=== PATIENT | female | born 1945 | race Caucasian/White ===

== ENCOUNTER → 2016-12-23 | Outpatient (CLI) | payer MEDICARE ==
[2015-07-24 12:25] VITALS: BP 132/68
[~2016-12-23] MED LIST: ASCO10002 PO; ASPI-630 PO; CALC-112 PO; CHOL10003 PO; FISH1CAP PO; LISI1TAB5 PO; MELO7.5T29 PO; MULT-658 PO; PSYL660P18 PO; SIMV40TA3 PO
--- NOTE | 2016-12-23 10:21 | RAD ---
DATE: 12/23/2016 EXAM: DIGITAL SCREEN BILAT W/CAD HISTORY: Screening COMPARISON: One year earlier This study was interpreted with the benefit of Computerized Aided Detection (CAD). FINDINGS: Breast Density: SCATTERED The breast parenchyma shows scattered fibroglandular densities. Breast parenchyma level B. There has been little change in the appearance of the breasts compared to the previous exam. A biopsy clip is noted in the right breast. IMPRESSION: Benign findings BI-RADS CATEGORY: 2 BENIGN FINDING(S) RECOMMENDED FOLLOW-UP: 12M 12 MONTH FOLLOW-UP PQRS compliance statement: Patient information was entered into a reminder system with a target due date 12/23/2017 for the next mammogram. Mammography is a sensitive method for finding small breast cancers, but it does not detect them all and is not a substitute for careful clinical examination. A negative mammogram does not negate a clinically suspicious finding and should not result in delay in biopsying a clinically suspicious abnormality. "Our facility is accredited by the [employer] Mammography [employer]."
== END | disposition home or self-care (01) ==
LOC: MAMMO 08:45
DX: Z12.31 Encounter for screening mammogram for malignant neoplasm of breast (principal)
CPT/HCPCS: G0202; 77067

== ENCOUNTER → 2017-12-25 | Outpatient (CLI) | payer MEDICARE ==
[2015-07-24 12:25] VITALS: BP 132/68
--- NOTE | 2017-12-25 11:01 | RAD ---
DATE: 12/25/2017 EXAM: MAMMO MIGNON SCREENING BILATERAL HISTORY: Routine screening COMPARISON: 12/23/2016 This study was interpreted with the benefit of Computerized Aided Detection (CAD). Breast Density: FATTY The breast parenchyma is primarily fatty replaced. Breast parenchyma level density A. FINDINGS: 2-D and 3-D tomosynthesis imaging was performed in CC and MLO projections. An old breast biopsy marker is noted laterally in the right breast. No new or enlarging breast densities are seen. Minimal benign calcifications present. No suspicious microcalcifications have developed. IMPRESSION: Stable mammograms without evidence of malignancy. BI-RADS CATEGORY: 2 BENIGN FINDING(S) RECOMMENDED FOLLOW-UP: 12M 12 MONTH FOLLOW-UP PQRS compliance statement: Patient information was entered into a reminder system with a target due date for the next mammogram. Mammography is a sensitive method for finding small breast cancers, but it does not detect them all and is not a substitute for careful clinical examination. A negative mammogram does not negate a clinically suspicious finding and should not result in delay in biopsying a clinically suspicious abnormality. "Our facility is accredited by the [employer]amm[employer]."
== END | disposition home or self-care (01) ==
LOC: MAMMO 09:45
PROVIDERS: ATTEND Internal Medicine Geriatric Medicine
DX: Z12.31 Encounter for screening mammogram for malignant neoplasm of breast (principal); E78.2 Mixed hyperlipidemia; M17.0 Bilateral primary osteoarthritis of knee; I10 Essential (primary) hypertension; Z82.49 Family history of ischemic heart disease and other diseases of the circulatory system; Z83.3 Family history of diabetes mellitus
CPT/HCPCS: 77063; 77067

== ENCOUNTER → 2018-02-07 | Outpatient (CLI) | payer MEDICARE ==
[2015-07-24 12:25] VITALS: BP 132/68
--- NOTE | 2018-02-08 09:28 | RAD ---
Thyroid ultrasound, 02/07/2018: HISTORY: Follow-up thyroid nodules Comparison is made to a study from 01/30/2017. The right lobe of the gland measures 4.7 x 2.3 x 1.9 cm while the left lobe of the gland measures 6.9 x 2.9 x 2.8 cm. There are multiple bilateral thyroid nodules. The largest of these lies in the mid to inferior aspect of the left lobe of the gland. It demonstrates solid and cystic components. Its margins are smooth. It measures 5.0 x 2.6 x 4.7 cm. The largest nodule on the right lies in the mid to upper pole. It is predominately solid and smoothly marginated measuring 2.5 x 1.2 x 1.7 cm. Allowing for technical differences these nodules have shown no definite change in size. Additional smaller nodules include an 8 mm hypoechoic nodule at the junction of the isthmus and right lobe, and a 1 cm hypoechoic nodule in the posterior aspect of the right lobe of the gland, both of which appear stable. No thyroid calcifications or highly suspicious features are seen. IMPRESSION: Stable multinodular thyroid gland. Electronically signed by: Dylan Solis MD (02/08/2018 9:25 AM) [facility]
== END | disposition home or self-care (01) ==
LOC: US 13:47
PROVIDERS: ATTEND Otolaryngology
DX: E04.2 Nontoxic multinodular goiter (principal); E78.00 Pure hypercholesterolemia, unspecified; I10 Essential (primary) hypertension; Z96.651 Presence of right artificial knee joint
CPT/HCPCS: 76536

== ENCOUNTER → 2018-12-27 | Outpatient (CLI) | payer MEDICARE ==
[2015-07-24 12:25] VITALS: BP 132/68
[~2018-12-27] MED LIST changes: +LISI1TAB19 PO; -LISI1TAB5 PO; +SIMV40TA18 PO; -SIMV40TA3 PO
--- NOTE | 2018-12-28 17:03 | RAD ---
DATE: 12/27/2018 EXAM: DIGITAL SCREEN BILAT W/CAD HISTORY: Routine screening COMPARISON: 12/23/2015, 09/23/2014, 12/23/2016, 12/25/2017 mammographic exams This study was interpreted with the benefit of Computerized Aided Detection (CAD). Breast Density: FATTY The breast parenchyma is primarily fatty replaced. Breast parenchyma level density A. FINDINGS: Biopsy clip marker involves the right outer upper breast. No new mass or distortion. No suspicious calcification. IMPRESSION: Stable BI-RADS CATEGORY: 1 NEGATIVE RECOMMENDED FOLLOW-UP: 12M 12 MONTH FOLLOW-UP PQRS compliance statement: Patient information was entered into a reminder system with a target due date for the next mammogram. Mammography is a sensitive method for finding small breast cancers, but it does not detect them all and is not a substitute for careful clinical examination. A negative mammogram does not negate a clinically suspicious finding and should not result in delay in biopsying a clinically suspicious abnormality. "Our facility is accredited by the [employer] Mammography [employer]."
== END | disposition home or self-care (01) ==
LOC: MAMMO 13:23
PROVIDERS: ATTEND Internal Medicine Geriatric Medicine
DX: Z12.31 Encounter for screening mammogram for malignant neoplasm of breast (principal); N64.89 Other specified disorders of breast
CPT/HCPCS: 77067

== ENCOUNTER → 2019-02-19 | Outpatient (CLI) | payer MEDICARE ==
[2015-07-24 12:25] VITALS: BP 132/68
--- NOTE | 2019-02-19 17:06 | RAD ---
EXAM: Thyroid ultrasound HISTORY: Follow-up thyroid nodules. Prior benign biopsies. COMPARISON: 02/07/2018. FINDINGS: Sonographic evaluation of the thyroid gland was performed. The right lobe measures 3.9 x 2.4 x 2.0 cm. A mostly solid isoechoic nodule in the interpolar region measures 2.5 x 1.7 x 1.5 cm, not clearly changed. Another hypoechoic solid nodule more inferiorly measures 9 x 9 x 6 mm, stable to slightly decreased. The left lobe measures 6.3 x 2.9 x 2.2 cm. A solid greater than cystic nodule occupying the majority of the lower pole measures 5.1 x 4.8 x 2.2 cm, not clearly changed. The isthmus measures 8 mm. A small isthmic nodule measures 8 x 7 mm and is slightly decreased. IMPRESSION: 1. Multiple bilateral nodules measure up to 5.1 cm on the left and are not clearly changed. Refer to prior benign biopsy results. Electronically signed by: Patrica Willis MD (02/19/2019 5:03 PM) [facility]
== END | disposition home or self-care (01) ==
LOC: US 10:38
PROVIDERS: ATTEND Otolaryngology
DX: E04.2 Nontoxic multinodular goiter (principal)
CPT/HCPCS: 76536

== ENCOUNTER → 2020-01-06 | Outpatient (CLI) | payer MEDICARE ==
[2015-07-24 12:25] VITALS: BP 132/68
[~2020-01-06] MED LIST changes: +ASCO100019 PO; -ASCO10002 PO; -LISI1TAB19 PO; +LISI1TAB37 PO
--- NOTE | 2020-01-06 18:20 | RAD ---
EXAMINATION: Bilateral screening mammogram, 01/06/2020 10:30 AM CLINICAL INDICATION: 75-year-old woman presenting for screening mammogram. COMPARISON: 12/26/2018, 07/07/2011 TECHNIQUE: Digital bilateral full-field CC and MLO views, and CC and MLO tomosynthesis views of the breasts were obtained. CAD was utilized. FINDINGS: The breasts contain scattered areas of fibroglandular density. There is a biopsy clip in the upper outer outer right breast. There is no mass, suspicious calcification, or architectural distortion. IMPRESSION: 1. No mammographic evidence of malignancy. 2. BI-RADS 1: Negative. 3. Routine annual screening mammogram is recommended in 1 year. The patient will receive a reminder letter by mail when she is due for her next exam. Electronically signed by: Nasrin Gonzalez MD (01/06/2020 6:17 PM) [id number]
== END | disposition home or self-care (01) ==
LOC: MAMMO 10:32
PROVIDERS: ATTEND Internal Medicine Geriatric Medicine
DX: Z12.31 Encounter for screening mammogram for malignant neoplasm of breast (principal)
CPT/HCPCS: 77063; 77067

== ENCOUNTER → 2020-02-21 | Outpatient (CLI) | payer MEDICARE ==
[2015-07-24 12:25] VITALS: BP 132/68
--- NOTE | 2020-02-21 16:07 | RAD ---
Thyroid ultrasound 02/21/2020 CLINICAL HISTORY: Thyroid nodules. TECHNIQUE: A real-time ultrasound examination of the thyroid gland was performed. Multiple images were obtained. FINDINGS: Comparison study is dated 02/19/2019. The thyroid gland is enlarged. The right lobe of thyroid gland measures 5.0 x 2.3 x 2.0 cm in longitudinal, transverse, and AP dimensions. The left lobe of the thyroid gland measures 6.5 x 3.2 x 2.2 cm in size. The isthmus measures 8 mm in thickness. Multiple nodules are seen scattered throughout both lobes of the thyroid gland. The nodules vary in size from 8 mm to 5 cm in size. The largest nodule within the right lobe of thyroid gland is oval-shaped, predominantly hyperechoic and well-defined. It measures 2.8 cm in greatest diameter. The largest nodule within the left lobe of thyroid gland is oval-shaped, complex but predominantly hyperechoic and measures 4.8 cm in greatest diameter. These nodules are unchanged from the previous examination. No new nodule is seen. IMPRESSION: Findings are again seen consistent with a multinodular goiter, unchanged. Electronically signed by: Huy Freitas MD (02/21/2020 4:04 PM) [place] [id number]
== END ==
LOC: US 10:50
PROVIDERS: ATTEND Otolaryngology
DX: E04.2 Nontoxic multinodular goiter (principal)
CPT/HCPCS: 76536

== ENCOUNTER → 2021-01-12 | Outpatient (CLI) | payer MEDICARE ==
[2015-07-24 12:25] VITALS: BP 132/68
--- NOTE | 2021-01-12 16:59 | RAD ---
Bilateral digital screening 2-D and 3-D (digital breast tomosynthesis) mammogram: Reason for examination: Routine screening. Comparison: Mammograms from 01/06/2020 and 12/27/2018. Interpretation was made with the benefit of CAD. FINDINGS: Breast density: Category B. There are scattered areas of fibroglandular density. No suspicious breast mass, malignant appearing calcifications, or architectural distortion is seen. IMPRESSION: No evidence of malignancy. Assessment: BI-RADS 1. Negative. Recommendation: Routine screening mammograms. The patient will receive a letter with the results in the mail. Patient information will be entered i nto the mammography reminder system with a target recall date for the next mammogram. A reminder khalida er will be generated. Electronically signed by: Milka Bueno MD (01/12/2021 4:57 PM) [id number]
== END ==
LOC: MAMMO 10:00
PROVIDERS: ATTEND Internal Medicine Geriatric Medicine
DX: Z12.31 Encounter for screening mammogram for malignant neoplasm of breast (principal)
CPT/HCPCS: 77063; 77067

== ENCOUNTER → 2021-02-22 | Outpatient (CLI) | payer MEDICARE ==
[2015-07-24 12:25] VITALS: BP 132/68
--- NOTE | 2021-02-22 13:07 | RAD ---
EXAM: THYROID ULTRASOUND. HISTORY: Thyroid nodules. Prior benign biopsies. COMPARISON: 02/21/2020. FINDINGS: Sonographic evaluation of the thyroid gland was performed and evaluated using ACR TI-RADS c riteria. Right lobe: The right lobe measures 4.8 x 2.2 x 2.0 cm. A solid isoechoic nodule measures 2.8 x 1.8 x 1.6 cm and is stable. A hypoechoic solid nodule measures 9 x 5 x 5 mm. Left lobe: The left lobe measures 5.3 x 2.4 x 2.3 cm. The left lobe is mostly replaced by an isoechoi c mostly solid nodule measuring 5.2 x 2.5 x 2.4 cm. This is stable. Isthmus: The isthmus measures 9 mm. A hypoechoic solid nodule measures 8 x 7 mm. This is stable. IMPRESSION/RECOMMENDATION: 1. Stable bilateral mostly solid nodules, benign by prior biopsy. Electronically signed by: Patrica Willis MD (02/22/2021 1:05 PM) [id number]
== END ==
LOC: US 10:34
PROVIDERS: ATTEND Otolaryngology
DX: E04.2 Nontoxic multinodular goiter (principal)
CPT/HCPCS: 76536